=== PATIENT | female | born 1960 | race Caucasian/White ===

== ENCOUNTER 2023-10-25 08:24 | Outpatient (CLI) | payer BC, SELFPAY ==
--- NOTE | ~2023-10-25 | US_ITS ---
EXAMINATION: US abdomen limited DATE: 10/25/2023 08:53 INDICATION: Abnormal liver function tests. TECHNIQUE: Multiple grayscale and Doppler ultrasound images of the abdomen were obtained. COMPARISON: Ultrasound 08/30/2018 FINDINGS: The visualized portions of the head and body of the pancreas are normal. The liver is nader l without focal lesion. No liver surface nodularity. There is normal flow in main portal vein. The ga llbladder is normal in size. No gallstones or gallbladder wall thickening. There is no sonographic Mu rphy's sign. The common duct is normal and measures 4 mm. IMPRESSION: 1. Normal right upper quadrant ultrasound. Reviewed, dictated and finalized at location A.
== END 2023-10-25 08:25 ==
LOC: MICIMG 08:25
PROVIDERS: PCP Physician Assistant Medical; Visit Provider Physician Assistant Medical
DX: R74.8 Abnormal levels of other serum enzymes (principal)
CPT/HCPCS: 76705